=== PATIENT | female | born 1975 | race Caucasian/White ===

== ENCOUNTER 2019-08-29 20:56 | Emergency (ER) | payer OTHER ==
[~2019-08-29] VITALS: Ht 160 cm; Wt 83.9 kg
[2019-08-29 21:22] VITALS: BP_SYST 115
--- NOTE | 2019-08-29 21:24 | NUR ---
Patient triaged and placed in hallway/amb 1. VSS and patient appears in no acute distress at this time. Accompanied by family, awaiting available bed, and MD notified of need for MSE.
--- NOTE | 2019-08-29 22:16 | NUR ---
Patient to ER bed 06 to gown for evaluation. Side rails up.
--- NOTE | 2019-08-29 22:52 | NUR ---
Note undone in EDM - 08/29/19 at 2302 by [email or web address] BROUGHT IN BY AMBULANCE FOR POSSIBLE ANXIETY/PANIC ATTACK. PT. HAD A SUDDEN ONSET OF PALPITATION,BILATERAL HAND AND TONGUE NUMBNESS AND TINGLING. ER-MD AT BEDSIDE TO EVALUATE PT. 12 LEAD EKG DONE EARLIER AND NOTED BY ER-MD. PT. IS FEELING BETTER AT THIS TIME.
[2019-08-29] MEDS ORDERED: LABETALOL 100 MG/ 20ML VIAL IVP ONE (23:00)
--- NOTE | 2019-08-29 23:15 | NUR ---
GAUGE 18 IV LINE ESTABLISHED TO THE [facility]. BLOOD DRAWN AND SENT TO THE LAB. LABETALOL 20 MG IVP GIVEN ORDERED.
--- NOTE | 2019-08-29 23:25 | NUR ---
PORTABLE CXR DONE.
[2019-08-29 23:27] LABS: BASOPHILS # (AUTO) 0.1 K/uL (0.0-0.2); BASOPHILS % (AUTO) 0.9 % (0.0-2.0); EOSINOPHILS % (AUTO) 0.2 % (0.0-4.0); HEMATOCRIT 43.3 % (36-48); HEMOGLOBIN 14.5 g/dL (12.0-16.0); LYMPHOCYTES # (AUTO) 2.2 K/uL (1.0-5.5); LYMPHOCYTES % (AUTO) 20.6 % (20.5-51.5); MEAN CORPUSCULAR HEMOGLOBIN 30 pg (27-31); MEAN CORPUSCULAR HGB CONC 34 % (32-36); MEAN CORPUSCULAR VOLUME 89 fL (79.0-98.0); MONOCYTES # (AUTO) 0.5 K/uL (0.0-1.0); NEUTROPHILS # (AUTO) 7.7 K/uL (1.8-7.7); NEUTROPHILS % (AUTO) 73.3 % (40.0-70.0); PLATELET COUNT (AUTO) 251 K/uL (130-430); RED BLOOD CELL COUNT(AUTO) 4.87 MIL/uL (4.2-6.2); RED CELL DISTRIBUTION WIDTH 14.4 % (9.0-15.0); WHITE BLOOD COUNT (AUTO) 10.5 K/uL (4.8-10.8)
[2019-08-29 23:37] LABS: CALCIUM 8.6 mg/dL (8.4-11.0); CREATININE 0.67 mg/dL (0.55-1.30); POTASSIUM 3.5 mmol/L (3.5-5.1)
[2019-08-29 23:43] LABS: ALBUMIN 4.1 g/dL (3.4-4.8); TOTAL BILIRUBIN 0.6 mg/dL (0.0-1.0)
--- NOTE | 2019-08-29 23:55 | NUR ---
BP BETTER (139/76). DR.PEEK WILLOUGHBY.
--- NOTE | 2019-08-30 01:15 | NUR ---
DISCHARGED STABLE AND IMPROVED. VERBAL AND WRITTEN AFTERCARE INSTRUCTIONS GIVEN. VERBALIZED UNDERSTANDING. LEFT AMBULATORY WITH STABLE GAIT.
[2019-08-30 01:22] VITALS: BP_SYST 100
== END 2019-08-30 01:22 | disposition home or self-care (01) ==
LOC: SED 20:56
DX: R00.0 Tachycardia, unspecified (principal); R00.2 Palpitations; I10 Essential (primary) hypertension
CPT/HCPCS: 36415; 71045; 80053; 84484; 85025; 96374; 99284; J3490